=== PATIENT | female | born 1965 | race Caucasian/White ===

== ENCOUNTER 2021-02-25 08:40 | Emergency (ER) | payer OTHER ==
[~2021-02-25] VITALS: Ht 162.6 cm; Wt 81.6 kg
[2021-02-25 08:52] VITALS: BP 146/78
--- NOTE | 2021-02-25 08:57 | NUR ---
Pt taken to ER bed 8.
--- NOTE | 2021-02-25 09:02 | NUR ---
55 Y/O FEMALE C/O LEFT WRIST& LEFT HAND PAIN 6/10 DESCRIBES ACHING X 1 WEEK. DENIES TRAUMA/INJURY. PT DENIES N/V, DENIES FEVER/CHILLS. PMH: DM, ASTHMA NKA
--- NOTE | 2021-02-25 09:03 | NUR ---
DR KUMAR AT BEDSIDE EXAMINING PATIENT
[2021-02-25] MEDS ORDERED: IBUPROFEN 600 MG TAB PO ONE (09:05)
[2021-02-25] MEDS ORDERED: ACETAMINOPHEN EXTRA STRENGTH 500 MG TAB PO ONE (09:05)
--- NOTE | 2021-02-25 09:21 | NUR ---
invas tech at pt bedside.
--- NOTE | 2021-02-25 10:08 | NUR ---
Patient discharged with v/s stable. Written and verbal after care instructions given and explained. Patient verbalized understanding. Ambulatory with steady gait. All questions addressed prior to discharge. Advised to follow up with PMD.
== END 2021-02-25 10:08 | disposition home or self-care (01) ==
LOC: MED 08:40
DX: S63.8X2A Sprain of other part of left wrist and hand, initial encounter (principal); E11.9 Type 2 diabetes mellitus without complications; J45.909 Unspecified asthma, uncomplicated; W19.XXXA Unspecified fall, initial encounter; Y93.89 Activity, other specified; Y92.89 Other specified places as the place of occurrence of the external cause; Y99.8 Other external cause status
CPT/HCPCS: 73090; 73110; 73130; 99284

== ENCOUNTER 2021-03-26 22:14 | Emergency (ER) | payer OTHER ==
[~2021-03-26] VITALS: Ht 157.5 cm; Wt 81.6 kg
[2021-03-26 22:15] VITALS: BP 166/76
--- NOTE | 2021-03-26 23:32 | NUR ---
PT. TRIPPED OUTDOORS AND LACERATED RIGHT EYEBROW (1.5 INCH) ON METAL POLE. HAS HEADACHE. GCS15. PERRLA. AAOX4. VSS. PMH: DM ALLERGIES: NKA
[2021-03-27] MEDS ORDERED: LIDOCAINE MPF 1% 10 MG/ML VIAL INJ ONE ×2 (00:10→02:30)
--- NOTE | 2021-03-27 00:45 | NUR ---
Patient brought to CT via wheelchair
--- NOTE | 2021-03-27 01:10 | NUR ---
patient back from CT
--- NOTE | 2021-03-27 01:34 | NUR ---
Called Chanel daughter for updates on mother. Call patient daughter for updates and as a ride when patient is discharged home. #[phone]
--- NOTE | 2021-03-27 01:34 | NUR ---
Lillian conway in [facility] - 03/27/21 at 0137 by MELO Called Chanel leger for updates on mother.
--- NOTE | 2021-03-27 02:14 | NUR ---
On lunch. Report given to rodriguez Mills RN and DUANE Quijano for continuity of care.
[2021-03-27] MEDS ORDERED: LIDOCAINE MPF 1% 5 ML ONE (02:28)
--- NOTE | 2021-03-27 03:00 | NUR ---
ERMD at bedside closing wound up from a laceration
--- NOTE | 2021-03-27 03:05 | NUR ---
assisted ERMD at bedside for laceration
--- NOTE | 2021-03-27 03:07 | NUR ---
daughter Chanel called for an update on patient
--- NOTE | 2021-03-27 03:32 | NUR ---
Patient discharged with v/s stable. Written and verbal after care instructions given and explained. Patient verbalized understanding. Ambulatory with steady gait. ID band removed. All questions addressed prior to discharge. Advised to follow up with PMD.
[2021-03-27 03:43] VITALS: BP 157/84
== END 2021-03-27 03:32 | disposition home or self-care (01) ==
LOC: MED 22:14
DX: S01.81XA Laceration without foreign body of other part of head, initial encounter (principal); J45.909 Unspecified asthma, uncomplicated; E11.9 Type 2 diabetes mellitus without complications; W22.8XXA Striking against or struck by other objects, initial encounter; Y93.89 Activity, other specified; Y92.89 Other specified places as the place of occurrence of the external cause; Y99.8 Other external cause status
CPT/HCPCS: 12013; 70450; 70486; 90471; 90715; 99285; J2001

== ENCOUNTER 2021-04-01 09:02 | Emergency (ER) | payer OTHER ==
[~2021-04-01] VITALS: Ht 162.6 cm; Wt 90.7 kg
[2021-04-01 09:11] VITALS: BP 125/55
[2021-04-01 10:09] VITALS: BP 125/55
== END 2021-04-01 10:05 | disposition home or self-care (01) ==
LOC: MED 09:02
DX: S01.81XD Laceration without foreign body of other part of head, subsequent encounter (principal); J45.909 Unspecified asthma, uncomplicated; E11.9 Type 2 diabetes mellitus without complications; W19.XXXD Unspecified fall, subsequent encounter
CPT/HCPCS: 12001; 99281; 99282

== ENCOUNTER 2023-11-01 21:21 | Emergency (ER) | payer OTHER ==
[~2023-11-01] VITALS: Ht 152.4 cm; Wt 79.4 kg
[2023-11-01 21:30] VITALS: BP 122/70; PULSE 90; RESP 18; TEMP 98; O2SAT 100
[2023-11-02] MEDS ORDERED: ONDANSETRON 4 MG/2 ML VIAL IVP ONE (00:30)
[2023-11-02] MEDS ORDERED: NACL 0.9% 1,000 ML IV ONE (00:30)
[2023-11-02] MEDS ORDERED: DICYCLOMINE 20 MG/2 ML VIAL IM ONE (00:30)
[2023-11-02 00:51] LABS: BASOPHILS # (AUTO) 0.1 K/uL (0.00-0.22); BASOPHILS % (AUTO) 0.6 % (0.0-2.0); EOSINOPHILS # (AUTO) 0.2 K/uL (0-0.4); EOSINOPHILS % (AUTO) 1.6 % (0.0-4.0); HEMATOCRIT 48.5 % (36-48); HEMOGLOBIN 16.2 g/dL (12.0-16.0); LYMPHOCYTES # (AUTO) 0.7 K/uL (2.5-16.5); LYMPHOCYTES % (AUTO) 5.8 % (20.5-51.1); MEAN CORPUSCULAR HEMOGLOBIN 31 pg (27-31); MEAN CORPUSCULAR HGB CONC 33 g/dL (33-37); MEAN CORPUSCULAR VOLUME 94.3 fL (80-94); MONOCYTES # (AUTO) 0.4 K/uL (0.8-1.0); MONOCYTES % (AUTO) 3.2 % (1.7-9.3); NEUTROPHILS # (AUTO) 11.4 K/uL (1.8-7.7); NEUTROPHILS % (AUTO) 88.8 % (42.2-75.2); PLATELET COUNT (AUTO) 254 K/uL (140-450); RED BLOOD CELL COUNT(AUTO) 5.14 MIL/uL (4.20-5.40); RED CELL DISTRIBUTION WIDTH 14.9 % (11.6-13.7); WHITE BLOOD COUNT (AUTO) 12.8 K/uL (4.8-10.8)
[2023-11-02 00:52] LABS: APPEARANCE,URINE CLEAR (CLEAR); BILIRUBIN,URINE NEGATIVE (NEGATIVE); BLOOD, URINE NEGATIVE (NEGATIVE); COLOR,URINE YELLOW (YELLOW); LEUKOCYTE ESTERASE ,URINE NEGATIVE (NEGATIVE); NITRITE, URINE NEGATIVE (NEGATIVE); PROTEIN,URINE NEGATIVE (NEGATIVE); UGLUCOSE 3+ (NEGATIVE); UROBILINOGEN,URINE 0.2 EU/dL (0.2 - 1)
[2023-11-02 01:01] LABS: ANION GAP 15.1 (8-16); CALCIUM 8.6 mg/dL (8.5-10.1); CARBON DIOXIDE 27.2 mmol/L (21-32); CREATININE 0.8 mg/dL (0.6-1.3); POTASSIUM 4.3 mmol/L (3.5-5.1)
[2023-11-02 01:42] LABS: ALBUMIN 2.7 g/dL (3.4-5.0); BILIRUBIN,DIRECT 0.2 mg/dL (0.0-0.3); TOTAL BILIRUBIN 1.4 mg/dL (0.0-1.0); TOTAL PROTEIN, SERUM 7.1 g/dL (6.4-8.2)
[2023-11-02] MEDS ORDERED: BEN10 PO (02:20)
[2023-11-02] MEDS ORDERED: ONDA-188 PO (02:20)
== END 2023-11-02 02:37 | disposition home or self-care (01) ==
LOC: MED 21:21
DX: R11.10 Vomiting, unspecified (principal); R19.7 Diarrhea, unspecified; R10.84 Generalized abdominal pain; J45.909 Unspecified asthma, uncomplicated; E11.9 Type 2 diabetes mellitus without complications; Z79.4 Long term (current) use of insulin; Z79.899 Other long term (current) drug therapy
CPT/HCPCS: 36415; 80048; 80076; 81003; 83690; 85025; 96361; 96372; 96374; 99284; J0500; J2405; J7030